=== PATIENT | female | born 1955 | race Caucasian/White ===

== ENCOUNTER 2021-12-14 10:24 | Outpatient (CLI) | payer MEDICARE | END 2021-12-14 10:25 | disposition home or self-care (01) | LOC: CSHWCC 10:24 | PROVIDERS: ATTEND Nurse Practitioner Family | DX: T81.89XD Other complications of procedures, not elsewhere classified, subsequent encounter (principal) | CPT/HCPCS: 97139; 97605; G0463; 99203 ==

== ENCOUNTER 2021-12-19 08:12 | Outpatient (CLI) | payer MEDICARE | END 2021-12-19 08:13 | disposition home or self-care (01) | LOC: CSHWCC 08:12 | PROVIDERS: ATTEND Preventive Medicine Undersea and Hyperbaric Medicine | DX: T81.89XD Other complications of procedures, not elsewhere classified, subsequent encounter (principal) | CPT/HCPCS: 97139; 97605; G0463; 99212 ==

== ENCOUNTER 2021-12-22 08:04 | Outpatient (CLI) | payer MEDICARE | END 2021-12-22 08:05 | disposition home or self-care (01) | LOC: CSHWCC 08:04 | PROVIDERS: ATTEND Preventive Medicine Undersea and Hyperbaric Medicine | DX: T81.89XD Other complications of procedures, not elsewhere classified, subsequent encounter (principal) | CPT/HCPCS: 97605 ==

== ENCOUNTER 2021-12-28 09:46 | Outpatient (CLI) | payer MEDICARE | END 2021-12-28 09:47 | disposition home or self-care (01) | LOC: CSHWCC 09:46 | PROVIDERS: ATTEND Preventive Medicine Undersea and Hyperbaric Medicine | DX: T81.89XD Other complications of procedures, not elsewhere classified, subsequent encounter (principal) ==

== ENCOUNTER 2022-01-03 10:41 | Outpatient (CLI) | payer SELFPAY | END 2022-01-03 10:42 | disposition home or self-care (01) | LOC: CSHWCC 10:41 | PROVIDERS: ATTEND Preventive Medicine Undersea and Hyperbaric Medicine | DX: T81.89XD Other complications of procedures, not elsewhere classified, subsequent encounter (principal) | CPT/HCPCS: 97605 ==

== ENCOUNTER 2022-01-19 08:07 | Outpatient (CLI) | payer MEDICARE | END 2022-01-19 08:08 | disposition home or self-care (01) | LOC: CSHWCC 08:07 | PROVIDERS: ATTEND Preventive Medicine Undersea and Hyperbaric Medicine | DX: T81.89XD Other complications of procedures, not elsewhere classified, subsequent encounter (principal) ==

== ENCOUNTER 2022-03-09 08:07 | Outpatient (CLI) | payer MEDICARE | END 2022-03-09 08:08 | disposition home or self-care (01) | LOC: CSHWCC 08:07 | PROVIDERS: ATTEND Nurse Practitioner Family | DX: T81.89XD Other complications of procedures, not elsewhere classified, subsequent encounter (principal) ==

== ENCOUNTER 2022-04-06 08:06 | Outpatient (CLI) | payer MEDICARE | END 2022-04-06 08:07 | disposition home or self-care (01) | LOC: CSHWCC 08:06 | PROVIDERS: ATTEND Nurse Practitioner Family | DX: T81.89XD Other complications of procedures, not elsewhere classified, subsequent encounter (principal) ==

== ENCOUNTER 2022-05-03 10:08 | Outpatient (CLI) | payer MEDICARE | END 2022-05-03 10:09 | disposition home or self-care (01) | LOC: CSHWCC 10:08 | PROVIDERS: ATTEND Nurse Practitioner Family | DX: T81.89XS Other complications of procedures, not elsewhere classified, sequela (principal) ==

== ENCOUNTER 2023-06-26 11:37 | Inpatient (IN) | payer MEDICARE, MEDICAID ==
[2023-06-26] MEDS ORDERED: Cefepime 2 GM VIAL ONE (12:11)
[2023-06-26 12:26] LABS: #Monocytes 0.5 10x3/uL (0.0-1.1); #Neutrophils 8.4 10x3/uL (1.5-8.4); %Basophils 0.3 % (0.0-2.0); %Eosinophils 0.1 % (0.0-6.0); %Monocytes 5.1 % (0.0-10.0); %Neutrophils 90.2 % (40.0-75.0); Hematocrit 35.1 % (34.9-44.5); Hemoglobin 11.3 g/dL (12.0-15.5); Mean Corpuscular HGB CONC 32.2 g/dL (32.0-36.0); Mean Corpuscular Hemoglobin 27.2 pg (27.0-33.0); Mean Corpuscular Volume 84.6 fl (81.6-98.3); Mean Platelet Volume 9.2 fl (7.4-10.4); Platelet Count 203 10x3/uL (150-450); RBC Distribution Width 14.1 % (11.5-14.5); Red Blood Cell (RBC) Count 4.15 10x6/uL (3.90-5.03); White Blood Cell (WBC) Count 9.3 10x3/uL (3.5-10.5)
[2023-06-26 12:46] LABS: Influenza A by NAA Not Detected (NotDetected); Influenza B by NAA Not Detected (NotDetected); SARS-CoV-2 NAA Rapid Test Not Detected (NotDetected)
[2023-06-26 12:53] LABS: ALT (SGPT) Less than 7 U/L (8-55); AST (SGOT) 10 U/L (5-34); Albumin 3.2 g/dL (3.4-4.8); Alkaline Phosphatase 63 U/L (40-110); Anion Gap 11 mmol/L (10-20); BUN (Urea Nitrogen) 22 mg/dL (9.8-20.1); Bilirubin, Total 0.5 mg/dL (0.2-1.2); Calc. Creatinine Clearance 0 mL/min (70-130); Calcium 8.5 mg/dL (7.8-10.44); Carbon Dioxide 27 mmol/L (23-31); Chloride 107 mmol/L (98-107); Estimated GFR 78; Globulin 2.7 g/dL (2.4-3.5); Glucose 109 mg/dL (80-115); Protein, Total 5.9 g/dL (5.8-8.1); Sodium 141 mmol/L (136-145)
[2023-06-26 12:54] LABS: Magnesium 1.6 mg/dL (1.6-2.6)
[2023-06-26 13:05] LABS: CRP (Inflammatory) 2.32 mg/dL (= or < 0.5)
[2023-06-26 14:16] LABS: Bilirubin Neg (Negative); Blood, Urine 10 (Negative); Clarity Cloudy (Clear); Glucose, Urine (Dipstick) Normal (Negative); Ketone, Urine 5 mg/dL (Negative); Leukocyte 500 (Negative); Nitrite Positive (Negative); Protein, Urine (Dipstick) 30 mg/dl (Neg-Trace); Urobilinogen Normal mg/dL (Less than 2)
[2023-06-26] MEDS ORDERED: Acetaminophen 325 MG TAB PO PRN (14:22)
[2023-06-26] MEDS ORDERED: Senokot S 8.6-50 MG TAB PO PRN (14:22)
[2023-06-26] MEDS ORDERED: Acetaminophen 650 MG Suppository PR PRN (14:22)
[2023-06-26] MEDS ORDERED: Bisacodyl 5 MG TAB PO PRN (14:22)
[2023-06-26] MEDS ORDERED: Polyethylene Glycol 3350 17 GM Packet PO PRN (14:32)
[2023-06-26] MEDS ORDERED: HYDROcodone/Acetaminophen 7.5/325 mg Tablet PO PRN (14:32)
[2023-06-26] MEDS ORDERED: Nystatin Powder 15 GM BOT TOP PRN (14:35)
[2023-06-26 14:48] LABS: RBC/HPF 0-3 HPF (0-3)
[2023-06-26 14:49] LABS: Bacteria/HPF 3+ HPF (None Seen); CAUTI Indications for Culture Pelvic or flank pain; Mucous/LPF 1+ LPF (<2+); Squamous Epithelial 0-3 HPF (0-3); Triple Phosphate Crystal 1+ HPF (None Seen); WBC/HPF 21-50 HPF (0-3)
[2023-06-26 14:50] LABS: Urine Culture Reflex Yes Yes
[2023-06-26] MEDS ORDERED: Ventolin HFA Inhaler 60 PUFF INHALER INH PRN (15:10)
[2023-06-26] MEDS: VANCOMYCIN 2 GRAM/400 ML BAG 2 GM in Premix 1 BAG IVPB SCH (16:47)
[2023-06-26] MEDS: Gabapentin 100 MG CAP PO SCH (16:56)
[2023-06-26 18:37] VITALS: BMI 34.2
[2023-06-26] MEDS: Ipratropium/Albuterol 3 ML NEB NEB SCH (19:24)
[2023-06-26] MEDS: Vancomycin 1 GM in Sodium Chloride 0.9% 250 ML 250 ML IVPB SCH (21:53)
[2023-06-26] MEDS: Metoprolol Tartrate 25 MG TAB PO SCH (21:54)
[2023-06-26] MEDS: methylPREDNISolone Sod Succ 40 MG VIAL IVP SCH (21:54)
[2023-06-26] MEDS: Famotidine 20 MG TAB PO SCH (21:54)
[2023-06-26] MEDS: Flecainide 50 MG TAB PO SCH (21:54)
[2023-06-26] MEDS: Saccharomyces boulardii 250 MG CAP PO SCH (21:55)
[2023-06-26] MEDS: Apixaban 5 MG TAB PO SCH (21:55)
[2023-06-26] MEDS: Cefepime 2 GM in Sodium Chloride 0.9% 100 ML IVPB SCH (23:59)
[2023-06-27 04:25] LABS: ALT (SGPT) Less than 7 U/L (8-55); AST (SGOT) 10 U/L (5-34); Albumin 3.1 g/dL (3.4-4.8); Alkaline Phosphatase 64 U/L (40-110); Anion Gap 13 mmol/L (10-20); BUN (Urea Nitrogen) 21 mg/dL (9.8-20.1); Bilirubin, Total 0.6 mg/dL (0.2-1.2); Calc. Creatinine Clearance 113 mL/min (70-130); Calcium 8.7 mg/dL (7.8-10.44); Carbon Dioxide 21 mmol/L (23-31); Chloride 107 mmol/L (98-107); Estimated GFR 86; Globulin 2.9 g/dL (2.4-3.5); Glucose 127 mg/dL (80-115); Potassium 4.1 mmol/L (3.5-5.1); Sodium 137 mmol/L (136-145); Vancomycin, Random 21.8 ug/mL (See Comment)
[2023-06-27 04:26] LABS: Hematocrit 33.8 % (34.9-44.5); Hemoglobin 10.7 g/dL (12.0-15.5); Mean Corpuscular HGB CONC 31.7 g/dL (32.0-36.0); Mean Corpuscular Hemoglobin 26.4 pg (27.0-33.0); Mean Corpuscular Volume 83.5 fl (81.6-98.3); Mean Platelet Volume 9.2 fl (7.4-10.4); Platelet Count 209 10x3/uL (150-450); RBC Distribution Width 14.3 % (11.5-14.5); Red Blood Cell (RBC) Count 4.05 10x6/uL (3.90-5.03); White Blood Cell (WBC) Count 10.6 10x3/uL (3.5-10.5)
[2023-06-27 04:43] LABS: MDiff Complete? YES
[2023-06-27 05:05] LABS: Band 16 % (5-11); Lymphocytes 2 % (21-51); Neutrophil 82 % (42-75)
[2023-06-27 05:08] LABS: Ovalocytes SLIGHT = 2-5 cells (100X) (0-1/hpf)
[2023-06-27 05:10] LABS: Microcytosis SLIGHT = 6-15 cells (100X) (0-5/hpf)
[2023-06-27 05:12] LABS: Platelet Adequacy Comment Appears Adequate
[2023-06-27] MEDS: Magnesium Oxide 400 MG TAB PO SCH (09:50)
[2023-06-27] MEDS: Multivitamin W/ Minerals 1 TAB PO SCH (09:51)
[2023-06-27] MEDS: Folic Acid 1 MG TAB PO SCH (09:51)
[2023-06-27] MEDS: Cyanocobalamin (Vitamin B-12) 1,000 MCG TAB PO SCH (09:53)
[2023-06-27] MEDS: HYDROcodone/Acetaminophen 7.5/325 mg Tablet PO PRN (09:54)
[2023-06-28 05:24] LABS: Vancomycin, Random 23.7 ug/mL (See Comment)
[2023-06-28] MEDS: GUAIFENESIN SF SOLN 200 MG/10 ML UDCUP PO PRN (10:03)
[2023-06-28] MEDS: Ondansetron PF 4 MG/2 ML Vial IVP PRN (12:05)
[2023-06-28] MEDS: Vancomycin 1 GM in Sodium Chloride 0.9% 250 ML 250 ML IVPB SCH (12:06)
[2023-06-28 12:52] LABS: #Basophils 0.01 10x3/uL (0.0-0.2); #Monocytes 0.16 10x3/uL (0.0-1.1); #Neutrophils 7.48 10x3/uL (1.5-8.4); %Basophils 0.1 % (0.0-2.0); %Lymphocytes 6.2 % (18.0-47.0); %Monocytes 1.9 % (0.0-10.0); %Neutrophils 90.7 % (40.0-75.0); Hematocrit 33.2 % (34.9-44.5); Hemoglobin 10.5 g/dL (12.0-15.5); Mean Corpuscular HGB CONC 31.6 g/dL (32.0-36.0); Mean Corpuscular Hemoglobin 26.6 pg (27.0-33.0); Mean Corpuscular Volume 84.1 fl (81.6-98.3); Platelet Count 234 10x3/uL (150-450); RBC Distribution Width 14.6 % (11.5-14.5); Red Blood Cell (RBC) Count 3.95 10x6/uL (3.90-5.03); White Blood Cell (WBC) Count 8.3 10x3/uL (3.5-10.5)
[2023-06-28] MEDS: Azithromycin 250 MG TAB PO SCH (16:54)
[2023-06-28 17:36] LABS: Legionella Urinary Ag Negative (Negative); Strep pneumo Urine Ag NEGATIVE (NEGATIVE)
[2023-06-28] MEDS: Cefdinir 300 MG CAP PO SCH (21:21)
[2023-06-29 05:47] LABS: #Monocytes 0.45 10x3/uL (0.0-1.1); %Lymphocytes 13.4 % (18.0-47.0); %Monocytes 5.9 % (0.0-10.0); %Neutrophils 79.9 % (40.0-75.0); Hematocrit 30.3 % (34.9-44.5); Hemoglobin 9.7 g/dL (12.0-15.5); Mean Corpuscular Hemoglobin 27.2 pg (27.0-33.0); Mean Corpuscular Volume 84.9 fl (81.6-98.3); Platelet Count 207 10x3/uL (150-450); RBC Distribution Width 14.6 % (11.5-14.5); Red Blood Cell (RBC) Count 3.57 10x6/uL (3.90-5.03); White Blood Cell (WBC) Count 7.6 10x3/uL (3.5-10.5)
[2023-06-29] MEDS ORDERED: Vancomycin 1.5 GRAM/300 ML BAG 1.5 GM in Premix 1 BAG IVPB SCH (06:00)
[2023-06-29 06:01] LABS: Anion Gap 11 mmol/L (10-20); BUN (Urea Nitrogen) 23 mg/dL (9.8-20.1); Calc. Creatinine Clearance 108 mL/min (70-130); Calcium 8.8 mg/dL (7.8-10.44); Carbon Dioxide 22 mmol/L (23-31); Chloride 109 mmol/L (98-107); Estimated GFR 82; Glucose 120 mg/dL (80-115); Potassium 4.2 mmol/L (3.5-5.1); Sodium 138 mmol/L (136-145)
[2023-06-29] MEDS: Azithromycin 250 MG TAB PO SCH (09:13)
[2023-06-29 09:54] VITALS: TEMP 98.2
[2023-06-29 11:28] VITALS: BP 109/60
== END 2023-06-29 11:54 | DRG 871 ==
LOC: CSHERS 11:37 → CSHTELE 13:35
PROVIDERS: ADMIT Internal Medicine; ATTEND Family Medicine
DX: A41.9 Sepsis, unspecified organism (principal); J18.9 Pneumonia, unspecified organism; J96.01 Acute respiratory failure with hypoxia; I10 Essential (primary) hypertension; R65.20 Severe sepsis without septic shock; I48.91 Unspecified atrial fibrillation; G89.4 Chronic pain syndrome; R53.81 Other malaise; I48.0 Paroxysmal atrial fibrillation; E78.5 Hyperlipidemia, unspecified; R33.9 Retention of urine, unspecified; Z98.890 Other specified postprocedural states; Z90.49 Acquired absence of other specified parts of digestive tract; Z74.01 Bed confinement status; Z79.01 Long term (current) use of anticoagulants; Z88.8 Allergy status to other drugs, medicaments and biological substances; Z79.899 Other long term (current) drug therapy; Z90.89 Acquired absence of other organs; Z82.49 Family history of ischemic heart disease and other diseases of the circulatory system; Z83.3 Family history of diabetes mellitus; Z99.3 Dependence on wheelchair
CPT/HCPCS: 36415; 71045; 80048; 80053; 80202; 81001; 82565; 83605; 83735; 84145; 84520; 85025; 86140; 87040; 87086; 87449; 87899; 93005; 94640; 94760; 96365; 96366; 96367; 97139; J0692; J2405; J2920; J3370; J3490; J7050; J7620